=== PATIENT | female | born 1995 | race Caucasian/White ===

== ENCOUNTER → 2017-08-16 | Outpatient (CLI) | payer BC ==
[~2017-08-16] MED LIST: FERR1TAB23 PO; MTR600X PO; PRENTAB26 PO
--- NOTE | 2017-08-16 12:00 | DIAGNOSTIC IMAGING REPORT ---
SCOLIOSIS 2 VIEW (AP LAT) CLINICAL HISTORY: HISTORY OF SCOLIOSIS COMPARISON STUDY: No previous studies for comparison. FINDINGS: There is a minimal thoracolumbar spinal curvature not exceeding 7 degrees. IMPRESSION: 1. Minimal thoracic spinal curvature convex to the right of 7 degrees, minimal thoracolumbar spinal curvature convex to the left of 4 degrees. Electronically signed by: Javon Sarabia M.D. 08/16/2017 11:59 AM Dictated Date/Time: 08/16/2017 11:58 AM
--- NOTE | 2017-08-16 12:04 | DIAGNOSTIC IMAGING REPORT ---
L HIP UNILATERAL 2 VIEWS CLINICAL HISTORY: Acute left hip pain. COMPARISON: None FINDINGS: Alignment of the left hip is anatomic. There is no fracture or suspicious lesion. Left hip joint space is preserved. There is no evidence for avascular necrosis. IMPRESSION: Unremarkable left hip radiographs. Electronically signed by: Johan Taylor M.D. 08/16/2017 12:02 PM Dictated Date/Time: 08/16/2017 12:01 PM
== END | disposition home or self-care (01) ==
LOC: C.RAD1850 10:57
PROVIDERS: ATTEND Nurse Practitioner Family
DX: M25.552 Pain in left hip (principal); Z87.39 Personal history of other diseases of the musculoskeletal system and connective tissue

== ENCOUNTER → 2017-08-18 | Outpatient (CLI) | payer BC ==
--- NOTE | 2017-08-18 10:01 | DIAGNOSTIC IMAGING REPORT ---
PELVIS 1 OR 2 VIEWS CLINICAL HISTORY: LEFT ANTERIOR HIP PAIN COMPARISON STUDY: Left hip radiographs August 16, 2017. FINDINGS: The sacroiliac joints and symphysis pubis are intact. There is no fracture or suspicious lesion within the pelvis or hips. There is no evidence of avascular necrosis of the femoral heads. IMPRESSION: No abnormality within the pelvis or hips. Electronically signed by: Johan Taylor M.D. 08/18/2017 10:00 AM Dictated Date/Time: 08/18/2017 9:55 AM
== END | disposition home or self-care (01) ==
LOC: C.RDSM 12:44
PROVIDERS: ATTEND Family Medicine
DX: M25.552 Pain in left hip (principal)

== ENCOUNTER 2019-11-18 00:56 | Inpatient (IN) ==
[2019-11-18] MEDS ORDERED: OXYTOCIN 30 UNITS/500 ML BAG IV PRN ×2 (01:15→08:40)
--- NOTE | 2019-11-18 01:22 | History & Physical Report ---
Date of Service November 18, 2019 Assessment & Plan (1) with 38 completed weeks gestation: (2) Normal labor: plan admission, epidural on demand, arom/pit as indicated. anticipate . fetus category one. History of Present Illness Chief Complaint: contractions Primary Care Provider: NO PCP Patient is a 24yowf with iup at 38 4/7 weeks who complains of painful contractions. no lof/vb. +fm. complicated by measuring large with us at 35 weeks 80% efw and ac95%. labs--A+/ab-/ri/rprnr/hepb-/hiv-/ gtt at 16 nl, 28 week gtt 134 with nl gtt/ gbs neg/ gc/ct neg/ neg panorama/ declined cf/sma/afp Allergies Allergy/AdvReac Type Severity Reaction Status Date / Time No Known Drug Allergies Allergy Mild NKA Verified 11/18/19 01:15 Home Medications Home Medications Medication Instructions Recorded Confirmed Type prenat.vits,sky,ija-hkow-kfmhk 1 tab PO DAILY 04/19/19 11/18/19 History Patient History Medical History (Updated 11/18/19 @ 01:22 by Ngozi Corral MD, FACOG) Abnormal biochemical finding on screening of mother with 39 completed weeks gestation Pyelonephritis (Resolved) Varicella vaccination Social History (Updated 04/19/19 @ 11:42 by Samantha Garduno) marital status: marital status details: Krish Grigsby (24) [phone] Current Living Situation: Spouse Current Living Situation Comment: lives with spouse, son, 2 cats, 1 dog. spouse to change litter. 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 Smoking Status: Former smoker Hx Alcohol Use: No Hx Substance Use: No OB History g1--10/16, 39 weeks/8#2oz/ USED [employer] History no std, no abnl paps Review of Systems All systems reviewed & are unremarkable except as noted in HPI & below Physical Exam Constitutional: WD/WN, vitals as above Gastrointestinal (Abdomen): soft gravid, nt Psychiatric: A+Ox3, euthymic affect Genitourinary: cx--4/100/-2, bulging bag, vertex toco--q2 min efm--125 with mod variability, accels to 140s, no decels Code Status & VTE Plan VTE Prophylaxis Plan VTE Prophylaxis will be ordered: No Coding Level of Care Code None Diagnoses with 38 completed weeks gestation Z3A.38 Normal labor O80; Z37.9
[2019-11-18 01:33] LABS: Hemoglobin 11.4 g/dL (12.0-16.0); Mean Corpuscular Hemoglobin 25.6 pg (25-34); Mean Corpuscular Volume 78.7 fL (80-100); Mean Platelet Volume 11.1 fL (7.4-10.4); Platelet Count 217 K/uL (130-400); RDW Coefficient of Variation 13.4 % (11.5-14.5); RDW Standard Deviation 38.1 fL (36.4-46.3); Red Blood Count 4.45 M/uL (4.2-5.4); White Blood Count 8.47 K/uL (4.8-10.8)
[2019-11-18 01:37] LABS: Mean Corpuscular Hgb Conc 32.6 g/dL (32-36)
[2019-11-18] MEDS: LACTATED RINGER'S 1,000 ML IV PRN ×2 (01:37→04:39)
[2019-11-18] MEDS ORDERED: BUPIVACAINE 0.25% 30 ML VIAL ONE (01:41)
[2019-11-18] MEDS ORDERED: fentaNYL citrate 100 MCG/2 ML VIAL ONE (01:41)
[2019-11-18] MEDS ORDERED: ePHEDrine sulfate 50 MG/ML AMP ONE (01:41)
[2019-11-18] MEDS ORDERED: fentaNYL 2MCG/ML ROPIV 1.25MG/ML 100 ML BAG EPI ONE (01:42)
--- NOTE | 2019-11-18 02:08 | Anesthesiology Consultation ---
Date of Service November 18, 2019 Assessment & Plan ASA ASA2 Proposed Anesthesia Anesthesia Type: Labor Epidural Risk / Benefits Reviewed With: PT / POA / Parent / Guardian, Accepts Plan and Informed Consent Obtained History Height/Weight Height: 5 ft 5 in Weight: 107.048 kg Allergies Allergy/AdvReac Type Severity Reaction Status Date / Time No Known Drug Allergies Allergy Mild NKA Verified 11/18/19 01:15 Medications Home Medications Medication Instructions Recorded Confirmed Last Taken prenat.vits,sky,vnk-ldnn-jkpsm 1 tab PO DAILY 04/19/19 11/18/19 11/17/19 08:00 Active Medications Generic Name Dose Route Start Last Admin Trade Name Freq PRN Reason Stop Dose Admin Lactated Ringer's 1,000 mls @ 125 mls/hr 11/18/19 01:15 11/18/19 02:14 Lr IV 11/20/19 01:14 125 mls/hr .Q8H PRN Infusion L&D Protocol Protocol Past Medical History Medical History Abnormal biochemical finding on screening of mother with 39 completed weeks gestation Pyelonephritis (Resolved) Varicella vaccination Exercise / Class Metabolic Activity II 4-5 Yardwork/Stairs/Walk up hill Past Family History Family History Grandfather (Paternal) Diabetes Uncle Diabetes Mother Hypertension Thyroid disease Past Surgical History Surgical History S/P tonsillectomy Past Anesthesia History No Hx of Anesthesia Complications and No Family Hx of Anesthesia Complications History of PONV No Hx of PONV and No Hx of Motion Sickness Social History Smoking Status: Former smoker Smoking End Date: age 17 Hx Alcohol Use: No Hx Substance Use: No substance use type: does not use Review of Systems denies fever/cough/ colds/ chest pain/ SOB/ ABDI Constitutional: no fever and no chills Respiratory: no cough and no dyspnea denies ABDI Cardiovascular: no chest pain and no dyspnea on exertion Physical Exam Vital Signs Last Vital Signs Temp 36.6 C 11/18/19 01:15 Pulse 79 11/18/19 02:24 Resp 20 11/18/19 01:15 BP 133/85 11/18/19 01:20 Pulse Ox 96 11/18/19 02:24 ENMT Mouth: no TMJ abnormality and no dentition abnormality Thyromental Distance: > or= 3.5 Finger Breadths Mallampati Class: II Neck neck extension not limited Respiratory normal respiratory effort; no respiratory distress Auscultation: lungs clear to auscultation bilaterally Cardiovascular Rate/Rhythm: regular rate and regular rhythm Neurologic moves all extremities Psychiatric Orientation: alert and oriented x 3 Testing Laboratory Results 11/18/19 01:26
[2019-11-18] MEDS ORDERED: NALOXONE HCL 1 MG in SODIUM CHLORIDE 0.9% 1000ML 1,000 ML IV PRN (02:38)
[2019-11-18] MEDS ORDERED: ONDANSETRON INJ 2 MG/ML 2 ML VIAL IV PRN (02:38)
[2019-11-18] MEDS ORDERED: PROMETHAZINE HCL 25 MG in SODIUM CHLORIDE 0.9% 50 ML IV PRN (02:38)
[2019-11-18] MEDS ORDERED: NALBUPHINE HCL INJ 10 MG/ML AMP IV PRN (02:38)
[2019-11-18] MEDS ORDERED: ePHEDrine sulfate 50 MG/ML AMP IV PRN (02:38)
[2019-11-18] MEDS ORDERED: DiphenhydrAMINE HCL 50 MG/ML VIAL IV PRN (02:38)
[2019-11-18] MEDS ORDERED: NALOXONE HCL 0.4 MG/1 ML VIAL/CARP IV PRN (02:38)
[2019-11-18] MEDS ORDERED: fentaNYL 2MCG/ML ROPIV 1.25MG/ML 100 ML BAG EPI PRN (02:38)
--- NOTE | 2019-11-18 08:26 | Delivery Summary ---
Vaginal Delivery Summary Date of Service November 18, 2019 Vaginal Delivery Summary Patient delivered vaginally over a small first degree perineum tear. Baby delivered in occiput anterior position. Mouth and nares then suctioned with bulb. No nuchal cord, fluid was meconium stained. Baby delivered with gentle traction, no excess force used. Live vigorous . Cord clamped and cut. Gases obtained and cord blood obtained. Placenta removed with traction. Pitocin started and uterine tone improved. Bleeding improved. Sponge and instrument counts correct. 1st degree repaired with 1 stitch simple. EBL= 150ml
[2019-11-18] MEDS ORDERED: bisacodyL 10 MG SUPP PR PRN (08:40)
[2019-11-18] MEDS ORDERED: SUPERCREAM 0.870% 15 GM JAR EXT PRN (08:40)
[2019-11-18] MEDS ORDERED: OXYCODONE/ACETAMINOPHEN 5mg/325mg TAB PO PRN (08:40)
[2019-11-18] MEDS ORDERED: DIPHTHERIA/TETANUS/PERTUSSIS 0.5 ML SYR/VIAL IM ONE (08:40)
[2019-11-18] MEDS ORDERED: BENZOCAINE 20% AER SPR 82.5 GM CAN EXT PRN (08:40)
[2019-11-18] MEDS ORDERED: HYDROCORTISONE ACETATE 25 MG SUPP PR PRN (08:40)
[2019-11-18] MEDS ORDERED: ACETAMINOPHEN 325 MG TAB PO PRN (08:40)
[2019-11-18 08:49] LABS: Base Excess Cord Venous Blood -5.2 mEq/L (-7.7-1.9); Cord Venous Blood HCO3 20 mmol/L (18.4-26.8); Cord Venous Blood PCO2 38 mmHg (30.4-57.2); Cord Venous Blood PO2 33 mmHg (14.1-43.3); Cord Venous Blood pH 7.34 (7.20-7.44)
[2019-11-18 08:52] LABS: Base Excess Cord Arterial Bld -5.3 mEq/L (-9-1.8); CO2 Cord Arterial Blood 47 mmHg (39.1-73.5); HCO3 Cord Arterial Blood 22 mmol/L (19.7-28.5); Oxygen Sat Cord Arterial Blood < 60.0 % (<60); PO2 Cord Arterial Blood 28 mmHg (4.1-31.7); pH Cord Arterial Blood 7.28 (7.1-7.38)
[2019-11-18] MEDS ORDERED: NON-FORMULARY MEDICATION (Prenat.Vits,Cal,Min-Iron-Folic 1 TAB) PO SCH (09:00)
--- NOTE | 2019-11-18 09:47 | Anesthesia Procedure Note ---
Date of Service November 18, 2019 Anesthesia Post Epidural Note Vital Signs Vital Signs: Temp Pulse Resp BP Pulse Ox 36.6 C 74 18 127/58 L 97 11/18/19 07:16 11/18/19 09:37 11/18/19 09:03 11/18/19 09:37 11/18/19 08:09 Notes Mental Status: alert / awake / arousable and participated in evaluation Nausea / Vomiting: adequately controlled Pain: adequately controlled Airway Patency, RR, SpO2: stable & adequate BP & HR: stable & adequate Hydration State: stable & adequate Neuraxial Anesthesia: was administered and sensory block is resolving Anesthetic Complications: no major complications apparent and Pt Satisfied with anesthetic care Epidural: Removed without complications and With tip intact Notes: Epidural site clean, dry and intact. No signs of edema, erythema or bruising at insertion site. Pt instructed to request anesthesia if she has residual lower extremity numbness or if she develops lower extremity pain or weakness, back pain or headache.
[2019-11-18] MEDS: IBUPROFEN 600 MG TAB PO PRN (19:32)
[2019-11-18] MEDS: DOCUSATE SODIUM 100 MG CAP PO SCH (20:15)
[2019-11-19 03:24] VITALS: PULSE 69
[2019-11-19] MEDS: IBUPROFEN 600 MG TAB PO PRN (06:13)
[2019-11-19 06:34] LABS: Hematocrit (blood only) 31.5 % (37-47); Mean Corpuscular Hemoglobin 25.5 pg (25-34); Mean Corpuscular Hgb Conc 31.7 g/dL (32-36); Mean Corpuscular Volume 80.4 fL (80-100); Mean Platelet Volume 11.4 fL (7.4-10.4); Platelet Count 151 K/uL (130-400); RDW Coefficient of Variation 13.7 % (11.5-14.5); Red Blood Count 3.92 M/uL (4.2-5.4); White Blood Count 8.61 K/uL (4.8-10.8)
[2019-11-19] MEDS ORDERED: PRENATAL VITAMIN 1 TAB PO SCH (08:00)
--- NOTE | 2019-11-19 08:21 | Obstetrical Progress Note ---
Date of Service November 19, 2019 Assessment & Plan (1) with 38 completed weeks gestation: PPD#1 doing well. Routine care. Subjective Ambulation: ambulating normally Voiding: no voiding problems Diet Tolerance:: regular diet Lochia:: Moderate Feeding Type:: breast feeding PPD#1 doing well. Review of Systems All systems reviewed & are unremarkable except as noted in HPI & below Physical Exam Constitutional WD/WN, vitals as above no acute distress Respiratory normal respiratory effort Cardiovascular Rate/Rhythm: regular rate and regular rhythm Gastrointestinal (Abdomen) Inspection/Auscultation: abdomen normal to inspection; abdomen not distended Percussion/Palpation: abdomen soft Genitourinary OB Exam Abdomen: + fundal height Fundus: + firm; not tender Results & Data Vital Signs (Past 12 Hours) Vital Signs Temp Pulse Resp BP Pulse Ox 11/19/19 03:05 36.7 C 69 16 118/80 11/18/19 23:00 36.6 C 68 16 137/80 96
[2019-11-19] MEDS: DOCUSATE SODIUM 100 MG CAP PO SCH (08:24)
[2019-11-19 09:11] VITALS: BP 149/85; TEMP 97.9; O2SAT 95
[2019-11-19] MEDS ORDERED: bisacodyL 5 MG TABEC PO SCH (20:00)
== END 2019-11-19 13:13 | disposition home or self-care (01) | DRG 807 ==
LOC: OPB 00:56 → 4S1 01:03 → 4S2 10:20